=== PATIENT | female | born 1960 | race Caucasian/White ===

== ENCOUNTER 2016-04-19 11:46 | Inpatient (IN) | payer BC, OTHER ==
[2016-04-19] MEDS ORDERED: Sodium Chloride 0.9% 1,000 ML PRIMARY IV ONE (11:55)
[2016-04-19] MEDS ORDERED: Pantoprazole Inj 40 MG in Normal Saline Flush 10 ML IVP ONE (11:55)
[2016-04-19] MEDS ORDERED: ONDANSETRON 4 MG/2 ML VIAL IVP ONE (11:55)
[2016-04-19] MEDS ORDERED: NORMAL SALINE 10 ML SYRINGE FLUSH IVP PRN ×3 (11:55→19:34)
[2016-04-19] MEDS ORDERED: MORPHINE SULFATE 4 MG/1 ML IVP ONE (11:56)
--- NOTE | 2016-04-19 12:09 | EKG ---
[address] [address] Measurements Intervals [place] Rate: 97 P: 35 WI: 128 QRS: 71 QRSD: 94 T: 41 QT: 381 QTc: 436 Interpretive Statements SINUS RHYTHM Non-specific ST changes inferolateral leads No previous ECG available for comparison Electronically Signed On 04-20-16 08:11:15 MST by James Esteves MD [email or web address]
[2016-04-19 12:12] LABS: BASOPHILS # (AUTO) 0.02 10*3/UL; BASOPHILS % (AUTO) 0.1 % (0-1); EOSINOPHILS % (AUTO) 0.1 % (0-8); HEMATOCRIT 38.7 % (37.0-47.0); HEMOGLOBIN 13.1 g/dL (12.0-16.0); IMM GRAN % (AUTO) 0.3 % (0-5); IMM GRAN# (AUTO) 0.05 10*3/UL; LYMPHOCYTES # (AUTO) 0.51 10*3/uL; LYMPHOCYTES % (AUTO) 3.2 % (10-50); MEAN CORPUSCULAR HEMOGLOBIN 29.4 PG (27-31); MEAN CORPUSCULAR HGB CONC 33.9 g/dL (33-37); MONOCYTES # (AUTO) 1.04 10*3/UL (0.3-0.8); MONOCYTES % (AUTO) 6.6 % (5-15); NEUTROPHILS # (AUTO) 14.22 10*3/UL; NEUTROPHILS % (AUTO) 89.7 % (50-80); RDW COEFFICIENT OF VARIATION 14.1 % (11.5-14.5); RED BLOOD COUNT 4.46 10^6/uL (4.20-5.40); WHITE BLOOD COUNT 15.85 10^3/uL (4.8-10.8)
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
[2016-04-19 12:24] LABS: AMYLASE 53 U/L (30-110); ASPARTATE AMINO TRANSFERASE 29 IU/L (8-39); BLOOD UREA NITROGEN 13 mg/dL (7-22); BUN/CREATININE RATIO 21.66 (6-20); C-REACTIVE PROTEIN 5.4 mg/dL (0.0-0.9); CALCIUM 9.6 mg/dL (8.7-10.7); CHLORIDE 98 meq/L (98-112); CREATININE 0.6 mg/dL (0.50-1.20); EST GLOMERULAR FILTRATION > 60 (>60 ml/min/1.73m(2)); GLUCOSE 157 mg/dL (78-110); PLATELET MORPHOLOGY COMMENT NORMAL MORPHOLOGY (NORM); POTASSIUM 4.2 meq/L (3.8-5.2); SODIUM 132 meq/L (135-145); TOTAL PROTEIN 8.3 g/dL (6.1-8.0)
[2016-04-19] MEDS ORDERED: MORPHINE SULFATE 2 MG/1 ML IVP ONE (13:29)
[2016-04-19] MEDS ORDERED: MORPHINE SULFATE 2 MG/1 ML ONE (13:34)
--- NOTE | 2016-04-19 13:36 | DI ---
HISTORY: None provided. COMPARISON: None available. TECHNIQUE: Contiguous axial enhanced images of the abdomen and pelvis were obtained from the lung ba ses through the ischial tuberosities. The images were then submitted for interpretation. FINDINGS: The heart size is normal, and the lung bases are clear. The liver and spleen are normal in size and contour and demonstrate no focal abnormalities. There is evidence of a gallbladder stone with a contracted gallbladder. The pancreas and adrenal glands are normal. The kidneys are in anatomic position. There is no evidence of renal calculi, hydronephrosis , or solid renal masses. The visualized vascular structures are normal. Left upper posterior abdominal hernia with small bowel. No significant bowel dilation in the region. Suspect for cecum volvulus. No perforation. No abscess in the intraperitoneum or retroperitoneum. There is fluid collection in the right upper medial thigh, inferior to ischial tuberosity; could be h ematoma but cannot exclude abscess. There is evidence of a pelvic bone fracture with fixation. IMPRESSION: 1. Suspect for cecum volvulus. No perforation. No abscess in the intraperitoneum or retroperitoneum . 2. There is fluid collection in the right upper medial thigh, inferior to ischial tuberosity; could b e hematoma but cannot exclude abscess. 3. Left upper posterior abdominal hernia with small bowel. No significant bowel dilation in the wilber on. 4. Gallbladder stone with a contracted gallbladder. 5. Pelvic bone fracture with fixation. NOTIFICATION: The above findings were phoned to Monique Rain in the CT Department on 04/19/2016 at 03:40 PM EST.
--- NOTE | 2016-04-19 15:40 | DI ---
HISTORY: Repeat CT scan without contrast. Questionable resolve of the possible cecal volvulus. COMPARISON: CT of the abdomen and pelvis earlier today (04/19/2016). TECHNIQUE: Contiguous axial unenhanced images of the abdomen and pelvis were obtained from the lung bases through the ischial tuberosities. The images were then submitted for interpretation. FINDINGS: The heart size is normal, and the lung bases are clear. The liver and spleen are normal in size and contour and demonstrate no focal abnormalities. Evidence of a gallbladder stone with a contracted gallbladder; stable. The pancreas and adrenal glands are n ormal. The kidneys are in anatomic position. There is no evidence of renal calculi, hydronephrosis, or solid renal masses. The visualized vascular structures are normal. Left abdominal wall hernia which has descending colon and small bowel within. No bowel dilation near this area. Rectal tube and rectal contrast is seen. Cecal volvulus is not resolved. No definite e xtraluminal air is seen. Fluid collection inferior to the right ischial tuberosity is less well seen and could be due to lack of IV contrast. IMPRESSION: 1. Rectal tube and rectal contrast is seen. Cecal volvulus is not resolved. 2. No definite extraluminal air is seen. 3. Left abdominal wall hernia which has descending colon and small bowel within. No bowel dilation n ear this area. 4. Evidence of a gallbladder stone with a contracted gallbladder; stable. 5. Fluid collection inferior to the right ischial tuberosity is less well seen and could be due to la ck of IV contrast. 6. All else appears unchanged.
[2016-04-19] MEDS ORDERED: Lactated Ringers 1,000 ML PRIMARY IV SCH ×2 (15:45→19:45)
[2016-04-19] MEDS ORDERED: Ertapenem Inj 1 GM in Sodium Chloride 0.9% 100 ML IV SCH (15:45)
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
[2016-04-19] MEDS ORDERED: ERTAPENEM 1 GM VIAL ONE (15:59)
[2016-04-19] MEDS ORDERED: Sodium Chloride 0.9% 100 ML IV ONE (16:00)
[2016-04-19] MEDS ORDERED: ROCURONIUM 10 MG/1 ML - 5 ML VIAL IVP ONE ×2 (16:09→17:30)
[2016-04-19] MEDS ORDERED: LIDOCAINE MPF 2% - 5 ML (20 MG/1 ML) ONE (16:11)
[2016-04-19] MEDS ORDERED: MIDAZOLAM 5 MG/1 ML ONE (16:11)
[2016-04-19] MEDS ORDERED: fentaNYL Inj 250 MCG/5 ML VIAL ONE (16:11)
[2016-04-19] MEDS ORDERED: HYDROmorphone 2 MG/1 ML ONE (17:16)
[2016-04-19] MEDS ORDERED: ONDANSETRON 4 MG/2 ML VIAL ONE (17:16)
[2016-04-19] MEDS ORDERED: KETAMINE 100 MG/1 ML - 5 ML ONE (17:16)
[2016-04-19] MEDS ORDERED: KETOROLAC 30 MG/1 ML VIAL ONE (17:16)
[2016-04-19] MEDS ORDERED: DEXAMETHASONE SOD PHOSPHATE 4 MG/1 ML VIAL ONE (17:17)
[2016-04-19] MEDS ORDERED: SUGAMMADEX SODIUM 200 MG/2 ML VIAL IV ONE (18:59)
[2016-04-19] MEDS ORDERED: Sodium Chloride 0.9% vial 30 ML ONE (19:05)
[2016-04-19] MEDS ORDERED: BUPivacaine Liposome/PF (Exparel) Inj 20ml vial INFIL ONE (19:05)
[2016-04-19] MEDS ORDERED: PROMETHAZINE 25 MG/1 ML VIAL IM PRN (19:34)
[2016-04-19] MEDS ORDERED: HYDROmorphone 2 MG/1 ML IVP PRN (19:34)
[2016-04-19] MEDS ORDERED: fentaNYL Inj 100 MCG/2 ML VIAL IVP PRN (19:34)
--- NOTE | 2016-04-19 19:35 | GEN.OPNOTE ---
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 Gallstones. Intraperitoneal mesh. Lumbar hernia. 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 Compromised bowel. Gallstones. Intraperitoneal DualMesh. Broad-based lumbar hernia. Procedure: #1 Reduction of cecal volvulus with right hemicolectomy with ileotransverse colostomy. #2 Opened cholecystectomy. #3 Removal of intraperitoneal foreign body. Surgeon: Alexis Payan MD Product Info Specialist: Ki Kelly MD Anesthesia Provider: Darien Cherry CRNA Anesthesia Type: General Estimated Blood Loss (mL): 100 Fluids: 500 mL of crystalloid. 1 g of IV Invanz prior to the start of the procedure. 30 mg of IV Toradol at the end of the procedure. Pathology: Specimens to pathology included the removed mesh, the right colon, and the gallbladder. Indications: Patient presented with a cecal volvulus. CT scan was consistent with the same. She had a repeat CT with rectal contrast which did not reduce the volvulus. She had gallstones and some scar tissue I felt it would be impossible to do a laparoscopic cholecystectomy so her gallbladder was taken out at the same time. The Prolene portion of the DualMesh was hanging free in the abdomen with extensive scar tissue to the omentum. I removed it as well. Findings: Cecal volvulus. Gallstones. Intraperitoneal foreign body. Complications: None. Operative Summary: The patient was taken to the operating suite and placed in the operating table in a supine position. Following the induction of general anesthetic the abdomen was prepped and draped in a sterile fashion. A surgical timeout was done. A transverse incision was made and carried through the subcutaneous tissue with electrocautery. The anterior sheath was divided with electrocautery. The rectus muscle was transected. The posterior sheath and peritoneum were elevated and incised. There were dense adhesions to the midline. There is a free-floating piece of mesh in the abdominal cavity. It was only in a few areas attached to the anterior abdominal wall. The omental attachments were taken off the mesh with electrocautery. The mesh itself was removed. Hemostasis was assured. There is a seroma cavity and plenty of scarred omentum to cover the small amount of remaining mesh tissue which was adherent to the anterior abdominal wall. There was no bowel in the area. An Se wound retractor was placed. The cecal volvulus was obvious. I delivered it through the wound and detorsed it. The bowel was compromised. It did start to pink up but it was very thin and had some serosal splitting. It was obvious it would need to be resected. The right colonic attachments were taken down with electrocautery. The ileal transection site was chosen. The ileum was cleaned of fatty tissue and transected with a linear stapler. The colon transection site was chosen. This was the proximal transverse colon. The fatty tissues were cleared from the colon and the colon was transected with a linear stapler. The mesocolon was taken down by serially clamping, dividing, and ligating the mesenteric vessels with 0 and 2-0 Vicryl sutures until the specimen could be removed. The specimen was removed from the operative field. The mesenteric defect was closed with running 2-0 Vicryl. The bowel was placed [id number]. The bowel was opened both on the ileal and colonic ends. A linear stapler was placed intraluminally, closed and fired. The defect created from the stapler was closed transversely with a TA 60 stapler. This created a [id number] yet functional end to end anastomosis. The anastomosis was inspected circumferentially and was intact. There was some bleeding from the bowel at the staple lines and this was taken care of with [id number] sutures of 3-0 Vicryl. A stitch was placed in the crotch of the anastomosis for security. The anastomosis was widely patent. The bowel was obviously viable. At this point the surgeons and hazardous waste material technician changed gowns and gloves. Extensive irrigation was undertaken. Hemostasis was assured. The intestinal contents were returned to the relative anatomic position and covered with the omentum. Bowel edges were viable at the anastomosis. I then palpated the gallbladder. There are several small stones. I felt it would be nearly impossible to do a laparoscopic cholecystectomy at a later date so I opted to remove the gallbladder. Blunt dissection was used to free up the cystic artery. It was encircled with a right angle clamp. 2 clips were placed proximally and one was placed distally and the cystic artery was divided. The cystic duct was isolated. A right angle clamp was placed on the cystic duct. Another was placed proximally. The duct was divided. There was an impacted stone between the clamps. The cystic duct was tied off with 2-0 Vicryl and then clipped with a surgical clip. The gallbladder was taken from the hepatic bed using electrocautery. Hemostasis was assured. Extensive irrigation was performed. Hemostasis was assured. The posterior sheath and peritoneum were closed with running #1 Vicryl. The anterior sheath was closed with running #1 Vicryl. The wound was irrigated. Hemostasis was assured. The wound edges were injected with Exparel. The wound was closed with surgical ivonne followed by a sterile dressing. Patient tolerated the procedure well without complication. She was taken to the recovery room in stable condition. All counts were correct. Patient Problems - Patient Problem List (1) Cecal volvulus Current Visit: Yes Status: Acute Diagnosis Date: 04/19/16 Priority: High (2) Colonic obstruction Current Visit: Yes Status: Acute Diagnosis Date: 04/19/16 Priority: High (3) Cholelithiasis Current Visit: Yes Status: Chronic Priority: Low (4) Lumbar hernia Current Visit: Yes Status: Chronic Priority: Low
[2016-04-19] MEDS ORDERED: ONDANSETRON 4 MG/2 ML VIAL IVP PRN (20:27)
[2016-04-19] MEDS: D5-LR + 20mEq KCL 1,000 ML PRIMARY IV SCH (22:13)
[2016-04-19] MEDS: HYDROmorphone 2 MG/1 ML IVP PRN (22:15)
[2016-04-19] MEDS: NORMAL SALINE 10 ML SYRINGE FLUSH IVP PRN (22:16)
[2016-04-20] MEDS: NORMAL SALINE 10 ML SYRINGE FLUSH IVP PRN ×3 (01:52→21:11)
[2016-04-20] MEDS: KETOROLAC 30 MG/1 ML VIAL IVP PRN ×4 (01:53→21:10)
[2016-04-20] MEDS: HYDROmorphone 2 MG/1 ML IVP PRN ×4 (01:54→21:10)
[2016-04-20] MEDS: D5-LR + 20mEq KCL 1,000 ML PRIMARY IV SCH ×2 (05:35→14:17)
[2016-04-20 06:23] LABS: BASOPHILS # (AUTO) 0.01 10*3/UL; BASOPHILS % (AUTO) 0.1 % (0-1); EOSINOPHILS % (AUTO) 0 % (0-8); HEMATOCRIT 30.9 % (37.0-47.0); HEMOGLOBIN 10.2 g/dL (12.0-16.0); IMM GRAN % (AUTO) 0.2 % (0-5); IMM GRAN# (AUTO) 0.02 10*3/UL; LYMPHOCYTES # (AUTO) 0.53 10*3/uL; MEAN CORPUSCULAR HEMOGLOBIN 29.4 PG (27-31); MEAN PLATELET VOLUME 11.4 FL (7.4-12.2); MONOCYTES # (AUTO) 0.66 10*3/UL (0.3-0.8); MONOCYTES % (AUTO) 6.3 % (5-15); NEUTROPHILS # (AUTO) 9.31 10*3/UL; NEUTROPHILS % (AUTO) 88.4 % (50-80); RDW COEFFICIENT OF VARIATION 14.3 % (11.5-14.5); RED BLOOD COUNT 3.47 10^6/uL (4.20-5.40); WHITE BLOOD COUNT 10.53 10^3/uL (4.8-10.8)
[2016-04-20 06:31] LABS: ASPARTATE AMINO TRANSFERASE 71 IU/L (8-39); BILIRUBIN,TOTAL 1.1 mg/dL (0.3-1.2); BLOOD UREA NITROGEN 9 mg/dL (7-22); CALCIUM 8.3 mg/dL (8.7-10.7); CHLORIDE 102 meq/L (98-112); CREATININE 0.6 mg/dL (0.50-1.20); EST GLOMERULAR FILTRATION > 60 (>60 ml/min/1.73m(2)); GLUCOSE 235 mg/dL (78-110); POTASSIUM 4.4 meq/L (3.8-5.2); SODIUM 133 meq/L (135-145); TOTAL PROTEIN 5.8 g/dL (6.1-8.0)
[2016-04-20 07:05] LABS: PLATELET MORPHOLOGY COMMENT NORMAL MORPHOLOGY (NORM)
[2016-04-20] MEDS: Pantoprazole Inj 40 MG in Normal Saline Flush 10 ML IVP SCH (08:44)
--- NOTE | 2016-04-20 08:55 | PDOC(PROG) ---
Subjective Post Op Day: 1 Pain Management: IV Chris Catheter: Yes Flatus: No Diet: NPO Ambulating: No Date and Time of Service: 04/20/2016 8 AM Interval History: Doing well. No specific complaints or problems. She still has some abdominal pain. Complains mostly in the epigastric region. Has not yet ambulated. No flatus or bowel movement. No nausea or vomiting. Objective : Data - Labs CBC and BMP: 04/20/16 05:53 04/20/16 05:53 Labs - Last 24 Hours: Laboratory Results 04/20/16 Range/Units 05:53 WBC 10.53 (4.8-10.8) 10^3/uL RBC 3.47 L (4.20-5.40) 10^6/uL Hgb 10.2 L (12.0-16.0) g/dL Hct 30.9 L (37.0-47.0) % MCV 89.0 (81-99) FL MCH 29.4 (27-31) PG MCHC 33.0 (33-37) g/dL RDW Std Deviation 45.1 (39-50) fL RDW Coeff of Levy 14.3 (11.5-14.5) % Plt Count 229 (140-350) 10*3/uL MPV 11.4 (7.4-12.2) FL Immature Gran % (Auto) 0.2 (0-5) % Neut % (Auto) 88.4 H (50-80) % Lymph % (Auto) 5.0 L (10-50) % [place] % (Auto) 6.3 (5-15) % Eos % (Auto) 0 (0-8) % Baso % (Auto) 0.1 (0-1) % Immature Gran # (Auto) 0.02 10*3/UL Neut # (Auto) 9.31 10*3/UL Lymph # (Auto) 0.53 10*3/uL [place] # (Auto) 0.66 (0.3-0.8) 10*3/UL Eos # (Auto) 0 10*3/UL Baso # (Auto) 0.01 10*3/UL WBC Morphology Comment Normal morphology (NORM) Plt Morphology Comment Normal morphology (NORM) RBC Morph Comment Normal morphology (NORM) Sodium 133 L (135-145) meq/L Potassium 4.4 (3.8-5.2) meq/L Chloride 102 (98-112) meq/L Carbon Dioxide 26 (23-33) meq/L Anion Gap 5 (5-20) BUN 9 (7-22) mg/dL Creatinine 0.6 (0.50-1.20) mg/dL Estimated GFR > 60 (>60 ml/min/1.73m(2)) BUN/Creatinine Ratio 15.00 (6-20) Glucose 235 H (78-110) mg/dL Calculated Osmolality 282.0 (267-292) mOsm/kg Calcium 8.3 L (8.7-10.7) mg/dL Total Bilirubin 1.1 (0.3-1.2) mg/dL AST 71 H (8-39) IU/L ALT 63 H (9-52) IU/L Alkaline Phosphatase 53 (38-126) IU/L Total Protein 5.8 L (6.1-8.0) g/dL Albumin 2.9 L (3.5-4.8) g/dL Globulin 2.9 (2.50-4.10) g/dL Albumin/Globulin Ratio 1.00 L (1.3-2.0) mg/g - Vital Signs Vital Signs and I&O: Vital Signs - Last Taken Temperature 97.4 F 04/20/16 07:43 Pulse Rate 77 04/20/16 07:43 Respiratory Rate 18 04/20/16 07:43 Blood Pressure 117/66 04/20/16 07:43 Pulse Ox 96 04/20/16 07:43 Intake and Output (24hr x 4 totals) 04/18/16 04/19/16 04/20/16 04/21/16 05:59 05:59 05:59 05:59 Intake Total 908 Output Total 400 Balance -400 908 Objective : Exam - General General Appearance: No Acute Distress, Cooperative - Respiratory Respiratory Exam: Clear to Auscultation - Bilaterally, Breathing Non Labored - Cardiovascular Cardiovascular Exam: No Murmur - GI/Abdominal GI/Abdominal Exam: Non Distended, Soft, Hypoactive Bowel Sounds Additional GI/Abdominal Exam Details: Dressing is clean and dry and intact. Abdomen is benign. - Neurological Neurological Exam: Oriented x 3 - Psychiatric Psychiatric Exam: Normal Affect, Normal Mood - Integumentary Integumentary Exam: Normal Color, Warm, Dry Assessment and Plan - Patient Problems (1) Cecal volvulus Current Visit: Yes Status: Acute Priority: High Diagnosis Date: 04/19/16 Comment: Surgically resolved. Stable postop. Continue postoperative care. (2) Colonic obstruction Current Visit: Yes Status: Acute Priority: High Diagnosis Date: 04/19/16 Comment: Resolved. (3) Cholelithiasis Current Visit: Yes Status: Chronic Priority: Low Comment: Status post cholecystectomy. (4) Lumbar hernia Current Visit: Yes Status: Chronic Priority: Low Comment: Incidental. No treatment needed.
[2016-04-20] MEDS ORDERED: Ertapenem Inj 1 GM in Sodium Chloride 0.9% 100 ML IV SCH (09:00)
--- NOTE | 2016-04-20 09:47 | CRNA.PROGR ---
Anesthesia Note Anesthesia Progress Note: Sitting up in bed watching tv. VSS, and pain has been controlled. Discussed anesthetic course and expectations, she has no questions or concerns at this time. Laboratory Results 04/19/16 04/20/16 Range/Units 12:00 05:53 WBC 15.85 H 10.53 (4.8-10.8) 10^3/uL RBC 4.46 3.47 L (4.20-5.40) 10^6/uL Hgb 13.1 10.2 L (12.0-16.0) g/dL Hct 38.7 30.9 L (37.0-47.0) % MCV 86.8 89.0 (81-99) FL MCH 29.4 29.4 (27-31) PG MCHC 33.9 33.0 (33-37) g/dL RDW Std Deviation 44.2 45.1 (39-50) fL RDW Coeff of Levy 14.1 14.3 (11.5-14.5) % Plt Count 289 229 (140-350) 10*3/uL MPV 11.0 11.4 (7.4-12.2) FL Immature Gran % (Auto) 0.3 0.2 (0-5) % Neut % (Auto) 89.7 H 88.4 H (50-80) % Lymph % (Auto) 3.2 L 5.0 L (10-50) % [place] % (Auto) 6.6 6.3 (5-15) % Eos % (Auto) 0.1 0 (0-8) % Baso % (Auto) 0.1 0.1 (0-1) % Immature Gran # (Auto) 0.05 0.02 10*3/UL Neut # (Auto) 14.22 9.31 10*3/UL Lymph # (Auto) 0.51 0.53 10*3/uL [place] # (Auto) 1.04 H 0.66 (0.3-0.8) 10*3/UL Eos # (Auto) 0.01 0 10*3/UL Baso # (Auto) 0.02 0.01 10*3/UL WBC Morphology Comment Normal morphology Normal morphology (NORM) Plt Morphology Comment Normal morphology Normal morphology (NORM) RBC Morph Comment Normal morphology Normal morphology (NORM) Sodium 132 L 133 L (135-145) meq/L Potassium 4.2 4.4 (3.8-5.2) meq/L Chloride 98 102 (98-112) meq/L Carbon Dioxide 17 L 26 (23-33) meq/L Anion Gap 17 5 (5-20) BUN 13 9 (7-22) mg/dL Creatinine 0.6 0.6 (0.50-1.20) mg/dL Estimated GFR > 60 > 60 (>60 ml/min/1.73m(2)) BUN/Creatinine Ratio 21.66 H 15.00 (6-20) Glucose 157 H 235 H (78-110) mg/dL Calculated Osmolality 276.0 282.0 (267-292) mOsm/kg Calcium 9.6 8.3 L (8.7-10.7) mg/dL Total Bilirubin 1.0 1.1 (0.3-1.2) mg/dL AST 29 71 H (8-39) IU/L ALT 44 63 H (9-52) IU/L Alkaline Phosphatase 94 53 (38-126) IU/L Troponin I < 0.012 (< 0.040) ng/mL C-Reactive Protein 5.4 H (0.0-0.9) mg/dL Total Protein 8.3 H 5.8 L (6.1-8.0) g/dL Albumin 4.7 2.9 L (3.5-4.8) g/dL Globulin 3.6 2.9 (2.50-4.10) g/dL Albumin/Globulin Ratio 1.30 1.00 L (1.3-2.0) mg/g Amylase 53 (30-110) U/L Lipase 108 (23-300) IU/L Vital Signs (Last 8 hours) Temp Pulse Resp BP Pulse Ox 04/20/16 07:43 97.4 F 77 18 117/66 96 04/20/16 04:58 93 04/20/16 04:54 98.1 F 88 18 121/72 98
[2016-04-20] MEDS: Ertapenem Inj 1 GM in Sodium Chloride 0.9% 100 ML IV SCH (17:23)
[2016-04-21] MEDS: D5-LR + 20mEq KCL 1,000 ML PRIMARY IV SCH ×2 (01:52→15:56)
[2016-04-21] MEDS: KETOROLAC 30 MG/1 ML VIAL IVP PRN ×2 (04:42→20:26)
[2016-04-21] MEDS: HYDROmorphone 2 MG/1 ML IVP PRN ×3 (04:42→20:34)
[2016-04-21 06:47] LABS: BASOPHILS # (AUTO) 0.02 10*3/UL; BASOPHILS % (AUTO) 0.3 % (0-1); EOSINOPHILS % (AUTO) 1.3 % (0-8); HEMATOCRIT 26.9 % (37.0-47.0); HEMOGLOBIN 8.2 g/dL (12.0-16.0); IMM GRAN % (AUTO) 0.1 % (0-5); IMM GRAN# (AUTO) 0.01 10*3/UL; LYMPHOCYTES # (AUTO) 1.02 10*3/uL; LYMPHOCYTES % (AUTO) 13.3 % (10-50); MEAN CORPUSCULAR HEMOGLOBIN 28.1 PG (27-31); MEAN CORPUSCULAR HGB CONC 30.5 g/dL (33-37); MEAN PLATELET VOLUME 11.4 FL (7.4-12.2); MONOCYTES # (AUTO) 0.54 10*3/UL (0.3-0.8); NEUTROPHILS # (AUTO) 5.97 10*3/UL; RDW COEFFICIENT OF VARIATION 14.6 % (11.5-14.5); RED BLOOD COUNT 2.92 10^6/uL (4.20-5.40); WHITE BLOOD COUNT 7.66 10^3/uL (4.8-10.8)
[2016-04-21 06:49] LABS: PLATELET MORPHOLOGY COMMENT NORMAL MORPHOLOGY (NORM)
[2016-04-21 07:07] LABS: ASPARTATE AMINO TRANSFERASE 42 IU/L (8-39); BILIRUBIN,TOTAL 0.4 mg/dL (0.3-1.2); BLOOD UREA NITROGEN 7 mg/dL (7-22); BUN/CREATININE RATIO 11.66 (6-20); CALCIUM 8.3 mg/dL (8.7-10.7); CHLORIDE 104 meq/L (98-112); CREATININE 0.6 mg/dL (0.50-1.20); EST GLOMERULAR FILTRATION > 60 (>60 ml/min/1.73m(2)); GLUCOSE 99 mg/dL (78-110); SODIUM 137 meq/L (135-145); TOTAL PROTEIN 5.5 g/dL (6.1-8.0)
[2016-04-21] MEDS: Pantoprazole Inj 40 MG in Normal Saline Flush 10 ML IVP SCH (08:23)
--- NOTE | 2016-04-21 09:51 | PDOC(PROG) ---
Subjective Post Op Day: 2 Pain Management: IV Chris Catheter: No Flatus: No Diet: Clear Ambulating: Yes Date and Time of Service: 04/21/2016 9:40 AM Interval History: Overall doing well. No specific complaints or problems. Reports she is just sore. Pain is well controlled. Patient is voiding freely since her Chris has been removed. She reports the urine is still dark. Ambulating frequently. No flatus or bowel movement. Patient's weight is up 5 kg. Her hemoglobin and hematocrit have dropped. Her vital signs are stable. I think this is just dilutional. Will continue to follow. Objective : Data - Labs CBC and BMP: 04/21/16 05:58 04/21/16 05:58 Labs - Last 24 Hours: Laboratory Results 04/21/16 Range/Units 05:58 WBC 7.66 (4.8-10.8) 10^3/uL RBC 2.92 L (4.20-5.40) 10^6/uL Hgb 8.2 L (12.0-16.0) g/dL Hct 26.9 L (37.0-47.0) % MCV 92.1 (81-99) FL MCH 28.1 (27-31) PG MCHC 30.5 L (33-37) g/dL RDW Std Deviation 47.1 (39-50) fL RDW Coeff of Levy 14.6 H (11.5-14.5) % Plt Count 182 (140-350) 10*3/uL MPV 11.4 (7.4-12.2) FL Immature Gran % (Auto) 0.1 (0-5) % Neut % (Auto) 78.0 (50-80) % Lymph % (Auto) 13.3 (10-50) % [place] % (Auto) 7.0 (5-15) % Eos % (Auto) 1.3 (0-8) % Baso % (Auto) 0.3 (0-1) % Immature Gran # (Auto) 0.01 10*3/UL Neut # (Auto) 5.97 10*3/UL Lymph # (Auto) 1.02 10*3/uL [place] # (Auto) 0.54 (0.3-0.8) 10*3/UL Eos # (Auto) 0.10 10*3/UL Baso # (Auto) 0.02 10*3/UL WBC Morphology Comment Normal morphology (NORM) Plt Morphology Comment Normal morphology (NORM) RBC Morph Comment Normal morphology (NORM) Sodium 137 (135-145) meq/L Potassium 4.0 (3.8-5.2) meq/L Chloride 104 (98-112) meq/L Carbon Dioxide 27 (23-33) meq/L Anion Gap 6 (5-20) BUN 7 (7-22) mg/dL Creatinine 0.6 (0.50-1.20) mg/dL Estimated GFR > 60 (>60 ml/min/1.73m(2)) BUN/Creatinine Ratio 11.66 (6-20) Glucose 99 (78-110) mg/dL Calculated Osmolality 281.0 (267-292) mOsm/kg Calcium 8.3 L (8.7-10.7) mg/dL Total Bilirubin 0.4 D (0.3-1.2) mg/dL AST 42 H (8-39) IU/L ALT 54 H (9-52) IU/L Alkaline Phosphatase 54 (38-126) IU/L Total Protein 5.5 L (6.1-8.0) g/dL Albumin 2.7 L (3.5-4.8) g/dL Globulin 2.8 (2.50-4.10) g/dL Albumin/Globulin Ratio 0.90 L (1.3-2.0) mg/g - Vital Signs Vital Signs and I&O: Vital Signs - Last Taken Temperature 98.3 F 04/21/16 07:38 Pulse Rate 67 04/21/16 07:38 Respiratory Rate 16 04/21/16 07:38 Blood Pressure 103/68 04/21/16 07:38 Pulse Ox 94 04/21/16 07:38 Intake and Output (24hr x 4 totals) 04/19/16 04/20/16 04/21/16 04/22/16 05:59 05:59 05:59 05:59 Intake Total 2198 60 Output Total 400 750 225 Balance -400 1448 -165 Objective : Exam - General General Appearance: No Acute Distress, Cooperative - Respiratory Respiratory Exam: Clear to Auscultation - Bilaterally, Breathing Non Labored - Cardiovascular Cardiovascular Exam: RRR, No Murmur - GI/Abdominal GI/Abdominal Exam: Non Distended, Soft, Hypoactive Bowel Sounds Additional GI/Abdominal Exam Details: Dressing is clean and dry and intact. Abdominal exam is benign. Incisional tenderness only. - Neurological Neurological Exam: Alert, Oriented x 3 - Psychiatric Psychiatric Exam: Normal Affect, Normal Mood Assessment and Plan - Patient Problems (1) Cecal volvulus Current Visit: Yes Status: Acute Priority: High Diagnosis Date: 04/19/16 Comment: Resolved. Status post right hemicolectomy. Stable. Continue postoperative course. Continue to follow hemoglobin and hematocrit. No clinical signs of bleeding. (2) Colonic obstruction Current Visit: Yes Status: Acute Priority: High Diagnosis Date: 04/19/16 Comment: Resolved. See above. (3) Cholelithiasis Current Visit: Yes Status: Chronic Priority: Low Comment: Status post cholecystectomy. (4) Lumbar hernia Current Visit: Yes Status: Chronic Priority: Low Comment: Incidental finding. (5) Postoperative anemia Current Visit: Yes Status: Acute Priority: Medium Diagnosis Date: 04/20/16 Comment: Continue to monitor. No clinical signs of bleeding.
[2016-04-21] MEDS: Ertapenem Inj 1 GM in Sodium Chloride 0.9% 100 ML IV SCH (16:26)
[2016-04-21] MEDS: NORMAL SALINE 10 ML SYRINGE FLUSH IVP PRN (20:29)
[2016-04-22] MEDS: KETOROLAC 30 MG/1 ML VIAL IVP PRN ×3 (02:39→20:20)
[2016-04-22 06:06] LABS: BASOPHILS # (AUTO) 0.02 10*3/UL; BASOPHILS % (AUTO) 0.4 % (0-1); EOSINOPHILS % (AUTO) 3.1 % (0-8); HEMATOCRIT 30.3 % (37.0-47.0); HEMOGLOBIN 9.3 g/dL (12.0-16.0); IMM GRAN % (AUTO) 0 % (0-5); IMM GRAN# (AUTO) 0 10*3/UL; LYMPHOCYTES # (AUTO) 0.97 10*3/uL; LYMPHOCYTES % (AUTO) 21.2 % (10-50); MEAN CORPUSCULAR HEMOGLOBIN 28.3 PG (27-31); MEAN CORPUSCULAR HGB CONC 30.7 g/dL (33-37); MONOCYTES # (AUTO) 0.37 10*3/UL (0.3-0.8); MONOCYTES % (AUTO) 8.1 % (5-15); NEUTROPHILS # (AUTO) 3.07 10*3/UL; NEUTROPHILS % (AUTO) 67.2 % (50-80); RDW COEFFICIENT OF VARIATION 14.3 % (11.5-14.5); RED BLOOD COUNT 3.29 10^6/uL (4.20-5.40); WHITE BLOOD COUNT 4.57 10^3/uL (4.8-10.8)
[2016-04-22 06:10] LABS: PLATELET MORPHOLOGY COMMENT NORMAL MORPHOLOGY (NORM)
[2016-04-22 06:17] LABS: ASPARTATE AMINO TRANSFERASE 41 IU/L (8-39); BILIRUBIN,TOTAL 0.5 mg/dL (0.3-1.2); BLOOD UREA NITROGEN 5 mg/dL (7-22); BUN/CREATININE RATIO 8.33 (6-20); CALCIUM 8.5 mg/dL (8.7-10.7); CHLORIDE 103 meq/L (98-112); CREATININE 0.6 mg/dL (0.50-1.20); EST GLOMERULAR FILTRATION > 60 (>60 ml/min/1.73m(2)); GLUCOSE 80 mg/dL (78-110); POTASSIUM 3.8 meq/L (3.8-5.2); SODIUM 140 meq/L (135-145); TOTAL PROTEIN 5.9 g/dL (6.1-8.0)
[2016-04-22] MEDS: FLUOXETINE HCL 10 MG PO SCH (08:42)
[2016-04-22] MEDS: Pantoprazole Inj 40 MG in Normal Saline Flush 10 ML IVP SCH (08:42)
--- NOTE | 2016-04-22 09:29 | PDOC(PROG) ---
Subjective Post Op Day: 3 Pain Management: IV Chris Catheter: No Flatus: Yes Diet: Clear Ambulating: Yes Date and Time of Service: 04/22/2016 9:20 AM Interval History: Doing very well. No specific complaints or problems. Ambulating. Voiding freely and the urine is not is concentrated. Passing gas. Had a small liquid bowel movement. No nausea or vomiting. Tolerating the clear liquids. Objective : Data - Labs CBC and BMP: 04/22/16 05:42 04/22/16 05:42 Labs - Last 24 Hours: Laboratory Results 04/22/16 Range/Units 05:42 WBC 4.57 L (4.8-10.8) 10^3/uL RBC 3.29 L (4.20-5.40) 10^6/uL Hgb 9.3 L (12.0-16.0) g/dL Hct 30.3 L (37.0-47.0) % MCV 92.1 (81-99) FL MCH 28.3 (27-31) PG MCHC 30.7 L (33-37) g/dL RDW Std Deviation 46.4 (39-50) fL RDW Coeff of Levy 14.3 (11.5-14.5) % Plt Count 196 (140-350) 10*3/uL MPV 11.0 (7.4-12.2) FL Immature Gran % (Auto) 0 (0-5) % Neut % (Auto) 67.2 (50-80) % Lymph % (Auto) 21.2 (10-50) % [place] % (Auto) 8.1 (5-15) % Eos % (Auto) 3.1 (0-8) % Baso % (Auto) 0.4 (0-1) % Immature Gran # (Auto) 0 10*3/UL Neut # (Auto) 3.07 10*3/UL Lymph # (Auto) 0.97 10*3/uL [place] # (Auto) 0.37 (0.3-0.8) 10*3/UL Eos # (Auto) 0.14 10*3/UL Baso # (Auto) 0.02 10*3/UL WBC Morphology Comment Normal morphology (NORM) Plt Morphology Comment Normal morphology (NORM) RBC Morph Comment Normal morphology (NORM) Sodium 140 (135-145) meq/L Potassium 3.8 (3.8-5.2) meq/L Chloride 103 (98-112) meq/L Carbon Dioxide 29 (23-33) meq/L Anion Gap 8 (5-20) BUN 5 L (7-22) mg/dL Creatinine 0.6 (0.50-1.20) mg/dL Estimated GFR > 60 (>60 ml/min/1.73m(2)) BUN/Creatinine Ratio 8.33 (6-20) Glucose 80 (78-110) mg/dL Calculated Osmolality 285.0 (267-292) mOsm/kg Calcium 8.5 L (8.7-10.7) mg/dL Total Bilirubin 0.5 (0.3-1.2) mg/dL AST 41 H (8-39) IU/L ALT 54 H (9-52) IU/L Alkaline Phosphatase 60 (38-126) IU/L Total Protein 5.9 L (6.1-8.0) g/dL Albumin 3.0 L (3.5-4.8) g/dL Globulin 2.9 (2.50-4.10) g/dL Albumin/Globulin Ratio 1.00 L (1.3-2.0) mg/g - Vital Signs Vital Signs and I&O: Vital Signs - Last Taken Temperature 97.7 F 04/22/16 08:44 Pulse Rate 72 04/22/16 08:44 Respiratory Rate 18 04/22/16 08:44 Blood Pressure 148/95 04/22/16 08:44 Pulse Ox 98 04/22/16 08:44 Intake and Output (24hr x 4 totals) 04/20/16 04/21/16 04/22/16 04/23/16 05:59 05:59 05:59 05:59 Intake Total 2198 2590 Output Total 085 007 5506 1129 Balance -400 4137 -138 -8915 Objective : Exam - General General Appearance: No Acute Distress, Cooperative - Respiratory Respiratory Exam: Clear to Auscultation - Bilaterally, Breathing Non Labored - Cardiovascular Cardiovascular Exam: RRR, No Murmur - GI/Abdominal GI/Abdominal Exam: Normal Bowel Sounds, Non Distended, Soft Additional GI/Abdominal Exam Details: Dressing was removed. Incision looks great. Abdomen is soft with normoactive bowel tones. Incisional tenderness. No peritoneal signs. - Neurological Neurological Exam: Alert, Oriented x 3 - Psychiatric Psychiatric Exam: Normal Affect, Normal Mood Assessment and Plan - Patient Problems (1) Cecal volvulus Current Visit: Yes Status: Acute Priority: High Diagnosis Date: 04/19/16 Comment: Surgically resolved. Stable postop. Continue postoperative care. Advance diet. (2) Colonic obstruction Current Visit: Yes Status: Acute Priority: High Diagnosis Date: 04/19/16 Comment: Resolved. (3) Cholelithiasis Current Visit: Yes Status: Chronic Priority: Low Comment: Status post cholecystectomy. (4) Lumbar hernia Current Visit: Yes Status: Chronic Priority: Low Comment: Incidental finding. (5) Postoperative anemia Current Visit: Yes Status: Acute Priority: Medium Diagnosis Date: 04/20/16 Comment: Stable and improved. Hemoglobin and hematocrit have increased with diuresis.
[2016-04-22] MEDS ORDERED: ATORVASTATIN 10 MG TABLET PO ONE (20:11)
[2016-04-22] MEDS: HYDROcodone-APAP 5 MG -325 MG TABLET PO PRN (20:19)
[2016-04-22] MEDS: NORMAL SALINE 10 ML SYRINGE FLUSH IVP PRN (20:20)
[2016-04-23] MEDS ORDERED: PANTOPRAZOLE 40 MG TABLET PO SCH (07:00)
[2016-04-23] MEDS: HYDROcodone-APAP 5 MG -325 MG TABLET PO PRN (07:37)
[2016-04-23 08:32] VITALS: TEMP 97.8
[2016-04-23] MEDS: FLUOXETINE HCL 10 MG PO SCH (08:48)
[2016-04-23] MEDS ORDERED: LISINOPRIL 5 MG TABLET PO SCH (09:00)
[2016-04-23 11:05] VITALS: RESP 18
--- NOTE | 2016-04-23 13:13 | DCSUMMARY ---
Discharge Summary Admit Date: 04/19/16 Discharge Date: 04/23/16 Admitting Diagnosis: colonic obstruction secondary to cecal volvulus. Cholelithiasis. Discharge Diagnosis: Same. Primary Surgery and Date: 04/19/2016. Right hemicolectomy with ileotransverse colostomy. Cholecystectomy. Removal of intraperitoneal foreign body-hernia repair mesh. Hospital Course: Patient underwent surgery as described on Wednesday the . Her postoperative course has been unremarkable. She is tolerating a full liquid diet. She is passing gas. She has had 1 small liquid bowel movement. She is fully ambulatory. She is voiding freely. Her pain is well controlled. Exam - Vitals Vital Signs: Vital Signs Temperature 97.8 F Temperature Source Temporal Artery Scan Pulse Rate [Apical] 51 Pulse Rate [Pulse Oximeter] 57 Respiratory Rate 18 Blood Pressure [Left Arm] 151/89 Pulse Ox 99 Oxygen Flow Rate 0.5 Oxygen Delivery Method Room Air Height 5 ft 7 in Weight 70.987 kg - General General Appearance: POSITIVE: No Acute Distress, Cooperative - Respiratory Respiratory Exam: POSITIVE: Clear to Auscultation - Bilaterally, Breathing Non Labored - Cardiovascular Cardiovascular Exam: POSITIVE: RRR, No Murmur - GI/Abdominal GI/Abdominal Exam: POSITIVE: Normal Bowel Sounds, Non Distended, Soft Additional GI/Abdominal Exam Details: A few of the iovnne are coming loose. They have been removed. Benzoin and Steri-Strips have been placed. Patient has incisional tenderness. Otherwise abdomen is benign. - Neurological Neurological Exam: POSITIVE: Alert, Oriented x 3 - Psychiatric Psychiatric Exam: POSITIVE: Normal Affect, Normal Mood Data Perinent Studies: CT scan showing cecal volvulus. Cecal volvulus did not reduced with rectal contrast. Procedures: Right hemicolectomy. Cholecystectomy. Removal of intra-abdominal mesh. Patient Problems - Patient Problem List (1) Cecal volvulus Current Visit: Yes Status: Acute Diagnosis Date: 04/19/16 Priority: High Comment: Surgically resolved. Patient is stable and rated be discharged home for outpatient follow-up. Patient has never had a colonoscopy and should have one some time in the future. (2) Colonic obstruction Current Visit: Yes Status: Acute Diagnosis Date: 04/19/16 Priority: High Comment: Resolved with the above surgery. (3) Cholelithiasis Current Visit: Yes Status: Chronic Priority: Low Comment: Status post cholecystectomy. (4) Lumbar hernia Current Visit: Yes Status: Chronic Priority: Low Comment: incidental finding. (5) Postoperative anemia Current Visit: Yes Status: Acute Diagnosis Date: 04/20/16 Priority: Medium Comment: Secondary to excess fluid volume. Resolving.
[2016-04-23] MEDS ORDERED: ATORVASTATIN 10 MG TABLET PO SCH (21:00)
== END 2016-04-23 14:11 | disposition home or self-care (01) | DRG 331 ==
LOC: ER 11:46 → SDSC 15:48 → OPS 19:45 → UNDOADMIN 19:45 → MED/SURG 20:12 → OPS 20:12 → MED/SURG 20:27
PROVIDERS: ADMIT Surgery; ATTEND Surgery
PROC: 0WPG0JZ Removal of Synthetic Substitute from Peritoneal Cavity, Open Approach (ICD-10-PCS; 2016-04-19)
PROC: 0DTF0ZZ Resection of Right Large Intestine, Open Approach (ICD-10-PCS; principal; 2016-04-19 17:00)
PROC: 0FT40ZZ Resection of Gallbladder, Open Approach (ICD-10-PCS; 2016-04-19 17:00)
DX: K56.2 Volvulus (principal); K80.80 Other cholelithiasis without obstruction; K45.8 Other specified abdominal hernia without obstruction or gangrene
CPT/HCPCS: 36415; 74176; 74177; 80053; 82150; 83690; 84484; 85025; 86140; 93005; 93010; 94150; 94761; 96361; 96374; 96375; 96376; 99284; A4216; J1100; J1170; J1335; J1885; J2001; J2250; J2270; J2405; J3010; J3490; J7030; J7050; J7120

== ENCOUNTER 2016-08-07 08:59 | Day surgery (SDC) | payer BC ==
[~2016-08-07 08:59] MED LIST: LIDOCAINE W/ SODIUM BICARB 0.5 ML SYR ONE; Lactated Ringers 1,000 ML PRIMARY IV ONE
--- NOTE | 2016-08-07 10:47 | GEN.OPNOTE ---
Colonoscopy Procedure Note Surgery Date: 08/07/16 Preoperative Diagnosis: Colon cancer screening. History of adenomatous colon polyp. Postoperative Diagnosis: Colon cancer screening. History of adenomatous colon polyp. Procedure: Complete colonoscopy. Surgeon: Alexis Payan MD Anesthesia Provider: Portia Beckman CRNA Anesthesia Type: MAC Indications: Patient had a right hemicolectomy for a cecal volvulus. In the specimen and tubular adenoma was found. We recommended follow-up colonoscopy to rule out other colonic polyps. Findings: Prep : [Very good] Cecum : [Surgically absent.] Ascending : [Surgically absent. Anastomosis widely patent.] Transverse : [Normal] Sigmoid : [Normal] Rectum : [Normal] Digital Rectal Exam : [Normal] A lubricated flexible colonoscope was inserted and passed to the right colonic anastomosis. The colon anastomosis was widely patent. Air was aspirated as the scope was withdrawn. The entire colon was normal without polyp, tumor, neoplastic mass, infectious or inflammatory process. No other polyps were identified. She had a few scattered sigmoid diverticuli. The scope was withdrawn completing the procedure. Patient tolerated the entire procedure well without complication. She was taken to outpatient surgery in stable condition. Follow-up will be with my office on an as-needed basis. Because of a history of adenomatous colon polyp she should have a colonoscopy every 5 years.
[2016-08-07 12:55] VITALS: RESP 12
[2016-08-07 12:57] VITALS: TEMP 97.7
== END 2016-08-07 11:00 | disposition home or self-care (01) ==
LOC: SDSC 08:59
PROVIDERS: ATTEND Surgery
DX: Z12.11 Encounter for screening for malignant neoplasm of colon (principal); Z86.010 Personal history of colon polyps
CPT/HCPCS: 45378; J2704; J7120